=== PATIENT | male | born 1980 | race African-American/Black ===

== ENCOUNTER 2018-08-19 14:58 | Observation (INO) | payer OTHER, SELFPAY ==
[2018-08-19 15:39] LABS: #Basophils 0.1 thou/uL (0.0-0.2); #Eosinphils 0.1 thou/uL (0.0-0.7); #Lymphocytes 2.6 thou/uL (1.20-3.40); #Monocytes 0.6 thou/uL (0.11-0.59); #Neutrophils 4.3 thou/uL (1.40-6.50); %Basophils 1.8 % (0.0-1.0); %Eosinophils 1.6 % (0.0-10.0); %Lymphocytes 33.6 % (21.0-51.0); %Monocytes 7.9 % (0.0-10.0); %Neutrophils 55.1 % (42.0-75.0); Hemoglobin 15.7 g/dL (14.0-18.0); Mean Corpuscular HGB CONC 31.3 g/dL (32.0-36.0); Mean Corpuscular Hemoglobin 28.5 pg (27.0-31.0); Mean Corpuscular Volume 91.2 fL (78.0-98.0); Mean Platelet Volume 9.4 fL (7.4-10.4); Platelet Count 227 thou/uL (130-400); RBC Distribution Width 12.2 % (11.5-14.5); Red Blood Cell (RBC) Count 5.49 mill/uL (4.70-6.10); White Blood Cell (WBC) Count 7.9 thou/uL (4.8-10.8)
[2018-08-19 15:47] LABS: CO2 Tension (PvCO2) 49.8 mmHg (40.0-50.0); Chloride 97 mmol/L (98-107); Hemoglobin - Calc 17.3 g/dL (14.0-18.0); Potassium 4.7 mmol/L (3.5-5.1); Sodium 129 mmol/L (138-145); T. Carbon Dioxide 26.6 mmol/L (22.0-28.0)
[2018-08-19 16:01] LABS: ALT (SGPT) 24 U/L (8-55); AST (SGOT) 17 U/L (5-34); Albumin 4.5 g/dL (3.5-5.0); Alkaline Phosphatase 204 U/L (40-150); Anion Gap 20 mmol/L (10-20); BUN (Urea Nitrogen) 14 mg/dL (8.9-20.6); Bilirubin, Total 0.5 mg/dL (0.2-1.2); Calc. Creatinine Clearance 0 mL/min (70-130); Carbon Dioxide 23 mmol/L (22-29); Chloride 93 mmol/L (98-107); Estimated GFR-MDRD 59; Globulin 3.1 g/dL (2.4-3.5); Lipase 47 U/L (8-78); Potassium 4.8 mmol/L (3.5-5.1); Protein, Total 7.6 g/dL (6.0-8.3); Sodium 131 mmol/L (136-145)
[2018-08-19 16:04] LABS: Glucose 727 mg/dL (70-105)
--- NOTE | 2018-08-19 16:14 | RAD ---
PORTABLE CHEST 1 VIEW: DATE: 08/19/2018. TIME: 3:53 p.m. HISTORY: Diverticulosis. FINDINGS: The heart size is normal. The lungs are expanded. There is a mass-like density in the right paracol ic region. This may either represent a real mass or consolidation in the right middle lobe. No pneum othoraces or pleural effusions are seen. A followup exam is recommended. POS: [facility]
[2018-08-19 16:45] LABS: Bilirubin Negative (Negative); Blood, Urine Negative (Negative); Clarity Clear (Clear); Glucose, Urine (Dipstick) 500 mg/dL (Negative); Leukocyte Negative (Negative); Nitrite Negative (Negative); Protein, Urine (Dipstick) Negative (Neg-Trace); Urobilinogen 0.2 mg/dL (0.2-1.0)
[2018-08-19] MEDS ORDERED: Insulin Regular 300 UNITS/3 ML VIAL ONE (17:25)
[2018-08-19 19:55] VITALS: BMI 30.7
[2018-08-19] MEDS ORDERED: Acetaminophen 325 MG TAB PO PRN (19:57)
[2018-08-19] MEDS ORDERED: Ondansetron PF 4 MG/2 ML Vial IVP PRN (19:57)
[2018-08-19] MEDS ORDERED: Ondansetron ODT 8 MG TAB PO PRN (19:58)
[2018-08-19] MEDS ORDERED: Dextrose 50% Abboject 50 ML SYRINGE IVP PRN (19:59)
[2018-08-19] MEDS ORDERED: Dextrose 5% in Water 1,000 ML IV PRN (19:59)
[2018-08-19] MEDS ORDERED: Sodium Chloride 0.45% 1,000 ML IV SCH (20:00)
[2018-08-19] MEDS: Insulin Regular 300 UNITS/3 ML VIAL SC PRN ×2 (21:01→23:45)
[2018-08-20] MEDS ORDERED: Dextrose 50% Abboject 50 ML SYRINGE SLOW IVP PRN (00:37)
[2018-08-20] MEDS ORDERED: Dextrose 5% in Water 1,000 ML IV PRN (00:37)
[2018-08-20] MEDS ORDERED: Ondansetron ODT 4 MG TAB PO PRN (00:39)
[2018-08-20] MEDS ORDERED: HYDROcodone/Acetaminophen 5/325 mg Tablet PO PRN (00:39)
[2018-08-20] MEDS: Sodium Chloride 0.9% 1,000 ML IV SCH ×2 (05:24→12:29)
[2018-08-20] MEDS: HumaLOG 300 UNITS/3 ML VIAL SC PRN ×2 (05:25→12:30)
--- NOTE | 2018-08-20 05:38 | HP ---
CHIEF COMPLAINT: Nausea, vomiting, and high blood sugar. HISTORY OF PRESENT ILLNESS: He is a 37-year-old man with history of hypertension, type 2 diabetes, but not taking medicine for long time, had been noticing nausea and vomiting for last few days, not feeling good. So, he checked sugar at home, it was 600, so decide to come to the ER. So, he went to [facility] over the sugar of 727. They gave him insulin over there. He was not in DKA normal anion gap. Sugar went down 437 and 374, 330, 295, 288. The patient transferred here for further management. The patient does have nausea and vomiting. Denies any fever, chills, belly pain, and syncopal episode. PAST MEDICAL HISTORY: History of type 2 diabetes, hypertension, but not taking medications. ALLERGIES: HE IS NOT ALLERGIC TO ANY MEDICATION. FAMILY HISTORY: Positive for diabetes. MEDICATIONS: None he is taking at home. REVIEW OF SYSTEMS: CONSTITUTIONAL: He does have malaise. No fever. No dizziness. EYE: No diplopia. No vision changes noted. EAR AND THROAT: No rhinorrhea. No congestion. CARDIOVASCULAR: He denies any chest pain, short of breath, or palpitation. RESPIRATORY: No cough. No shortness of breath. No wheezing. GASTROINTESTINAL: He does have nausea, vomiting. No abdominal pain. No hematemesis. No melena. : He has increased frequent urination. No dysuria. No hesitancy. MUSCULOSKELETAL: No joint pain noted. HEME/LYMPHATIC: No clotting disorder noted. No early bruising. NEUROLOGIC: No focal deficit noted. PHYSICAL EXAMINATION: GENERAL: When examined, he is a young man, not in distress. VITAL SIGNS: Pulse 85, blood pressure 121/67, respiration rate 18, and temperature 98.4. HEENT: Head is atraumatic and normocephalic. Pupils are round and reactive. Extraocular muscles are intact. Ear and throat normal. Tongue, mucosa moist. NECK: Supple. No JVD. No thyromegaly. No carotid bruit. CHEST: Has normal vesicular breathing. No added sound. CVS: S1, S2 is audible. No S3, no S4. ABDOMEN: Soft, bowel sound is audible. No epigastric tenderness. No guarding or rigidity. EXTREMITIES: Peripheral pulses palpable. Dorsalis pedis and posterior tibial palpable. No pedal edema. No cyanosis or clubbing. [employer]: Alert x3. No focal deficits. LABORATORY DATA: Sodium 131, potassium 4.8, chloride 93, carbon dioxide 23, glucose 727, BUN 14, and creatinine 1.5. Alkaline phosphatase 204, AST 17, ALT 24. Globulin 3.1. Lipase 47. WBC 7.9, hemoglobin 15.7, hematocrit 50.1, platelets 227. Urine shows glucose 500, ketones 40 ASSESSMENT AND PLAN: 1. Nonketotic hyperosmolar diabetic coma. IV fluid. Lantus 20 units at night. Insulin sliding scale. Glucose every 4 hours. 2. Hyponatremia. He has pseudohyponatremia because of diabetes. We will follow BMP. 3. Acute kidney injury with creatinine 1.5 secondary to hypovolemia. IV fluid and follow BMP. 4. Diabetic education. A1c. Nutrition consult. 5. Deep venous thrombosis prophylaxis, on Lovenox. 6. Full code. Job ID: [id number] [facility]
[2018-08-20 05:55] LABS: Band 5 % (5-11); Eosinophils 2 % (0-10); Hemoglobin 13.9 g/dL (14.0-18.0); Lymphocytes 45 % (21-51); MDiff Complete? YES; Mean Corpuscular HGB CONC 32.6 g/dL (32.0-36.0); Mean Corpuscular Hemoglobin 29.5 pg (27.0-31.0); Mean Corpuscular Volume 90.3 fL (78.0-98.0); Mean Platelet Volume 8.3 fL (7.4-10.4); Metamyelocyte 1 % (0-0); Monocytes 5 % (0-10); Neutrophil 42 % (42-75); Platelet Count 240 thou/uL (130-400); Platelet Morphology Comment Appears Adequate; RBC Distribution Width 11.6 % (11.5-14.5); Red Blood Cell (RBC) Count 4.71 mill/uL (4.70-6.10); White Blood Cell (WBC) Count 7.3 thou/uL (4.8-10.8)
[2018-08-20 06:19] LABS: ALT (SGPT) 18 U/L (8-55); AST (SGOT) 16 U/L (5-34); Albumin 3.7 g/dL (3.5-5.0); Alkaline Phosphatase 119 U/L (40-150); Anion Gap 13 mmol/L (10-20); BUN (Urea Nitrogen) 9 mg/dL (8.9-20.6); Bilirubin, Total 0.5 mg/dL (0.2-1.2); Calc. Creatinine Clearance 140 mL/min (70-130); Carbon Dioxide 22 mmol/L (22-29); Chloride 104 mmol/L (98-107); Estimated GFR-MDRD Greater than 90; Globulin 2.6 g/dL (2.4-3.5); Glucose 210 mg/dL (70-105); Potassium 3.3 mmol/L (3.5-5.1); Protein, Total 6.3 g/dL (6.0-8.3); Sodium 136 mmol/L (136-145)
[2018-08-20] MEDS ORDERED: Potassium Chloride 20 MEQ TAB PO SCH (08:15)
[2018-08-20 08:16] LABS: Hemoglobin A1c 17.9 % (4.0-6.0)
[2018-08-20] MEDS ORDERED: Famotidine 20 MG TAB PO SCH (09:00)
[2018-08-20] MEDS ORDERED: Enoxaparin Sodium 40 MG/0.4 ML SYRINGE SC SCH (09:00)
[2018-08-20 12:01] VITALS: BP 114/72; TEMP 98.1
[2018-08-20] MEDS ORDERED: Insulin Glargine 20 UNITS in Pre-Filled Syringe SC SCH (21:00)
--- NOTE | 2018-08-20 23:30 | DIS ---
DATE OF ADMISSION: 08/19/2018 DATE OF DISCHARGE: 08/20/2018 PRIMARY CARE PHYSICIAN: None. CONSULTANTS: None. PROCEDURES: The patient had a chest x-ray, has a masslike density to the right pericolic region, may represent consolidation of right middle lobe. A Followup exam is recommended. The patient advised to follow up with primary care and have it repeated. HOSPITAL COURSE: Mr. Tam is a 37-year-old male, who reported to the emergency room for high blood sugar. Reports that he had been feeling very thirsty and had been urinating a lot in the last couple of days. Reports, he was diagnosed with diabetes in 2014. Reports stopped taking his medicine after about a month. Reports that he went off his medication, tried to control his sugar with diet and exercise. Reports that he noticed increased urinary frequency and thirst about 2 weeks ago. When he checked his blood sugar at home, it read as high. He then reported to the emergency room for further evaluation. The patient initially had a blood glucose in the emergency room at 727. He was given fluids and some regular insulin. His blood sugar continued to come down this morning at 0420, it was 216. A1c was noted to be at 17.9. Potassium 3.3, which was corrected with potassium chloride 40 mEq one time this morning. The patient was feeling much better on exam this morning. Reports that he really wanted to go home. There was a long discussion on diabetes management, importance of following the recommended guidelines, taking his medication as prescribed, the importance of following up with primary care for management of his diabetes. We agreed upon metformin 500 mg p.o. b.i.d. and Lantus 10 units subcu at night with the instructions that he has to take his blood sugar first thing in the morning and several times during the day and to create a log and take that log with him to his primary care doctor. He assured me that this would be done. Of note, as well, the patient should have a followup chest x-ray. Should also have his potassium checked. Blood sugar this morning was mentioned above, was in the 200s, did go down to 194. The patient's vital signs remained stable. The patient was discharged home. DISCHARGE DIAGNOSES: 1. Hyperglycemia, context of diabetes noncompliance. 2. Diabetes. REVIEW OF SYSTEMS: The patient was examined this morning prior to discharge. The patient denied any complaints. Denied any chest pain or shortness of breath. Reports urinary frequency had improved. No longer was thirsty. Mucous membranes were moist. The patient was anxious to return home. All other systems reviewed and are negative unless mentioned in the hospital course. PHYSICAL EXAMINATION: VITAL SIGNS: Temperature 97.9, pulse is 66, respirations 16, pulse ox is 99% on room air. He has a blood pressure of 121/78. CONSTITUTIONAL: The patient appears nontoxic, appears pain-free, is alert and oriented to person, place, and time. HEENT: Eyes, normal to inspection. Conjunctivae appears normal. ENT;, mouth exam is normal. Mucous membranes are moist. NECK: Normal range of motion. Trachea is midline. RESPIRATORY/CHEST: Respiratory exam includes no respiratory distress. Breath sounds are clear. CARDIOVASCULAR: Regular rate and rhythm. Heart sounds are normal. ABDOMEN: Nontender. Bowel sounds are heard. BACK: Normal range of motion. Normal inspection. EXTREMITIES: Upper extremities, motor strength is normal. Radial pulses are equal. Lower extremity, normal range of motion. Pedal pulses equal bilaterally. NEUROLOGIC: The patient is oriented to person, place, and time. Speech is normal. SKIN: No rashes noted. PSYCHIATRIC: Normal affect. ALLERGIES: NONE. DISCHARGE MEDICATIONS: The patient will be discharged on the followin. Metformin 500 mg p.o. b.i.d. 2. Lantus 10 units subcu at bedtime. CONDITION: Stable. The patient will be discharged home. The patient should follow up with primary care within the next week. Job ID: [id number]
== END 2018-08-20 13:25 | disposition home or self-care (01) ==
LOC: SCSER 14:58 → T4-B 19:28
PROVIDERS: ADMIT Emergency Medicine; ATTEND Emergency Medicine
DX: E11.65 Type 2 diabetes mellitus with hyperglycemia (principal); E11.01 Type 2 diabetes mellitus with hyperosmolarity with coma; E87.1 Hypo-osmolality and hyponatremia; I10 Essential (primary) hypertension; N17.9 Acute kidney failure, unspecified; Z91.14 Patient's other noncompliance with medication regimen
CPT/HCPCS: 36415; 36416; 71045; 80053; 81003; 82010; 82330; 82435; 82803; 83036; 83605; 83690; 84132; 84295; 85007; 85014; 85025; 85027; 96361; 96372; 96374; G0378; J1650; J1815